=== PATIENT | male | born 1985 | race Caucasian/White ===

== ENCOUNTER 2024-10-19 11:17 | Emergency (ER) | payer OTHER, SELFPAY ==
--- NOTE | ~2024-10-19 | XR_ITS ---
EXAMINATION: XR CHEST CLINICAL INFORMATION: Chest pain COMPARISON: None available. TECHNIQUE: 2 views of the chest were obtained. FINDINGS: The cardiac, hilar, and mediastinal contours are normal. The lungs are clear bilaterally. There is no pneumothorax or pleural effusion. There is no focal osseous or soft tissue abnormality. XR/XR chest 2V IMPRESSION: Normal chest. Electronically signed by: Jose Jung MD 10/19/2024 01:27 PM [facility] [place]
--- NOTE | ~2024-10-19 | CT_ITS ---
EXAMINATION: CT ABDOMEN PELVIS WITH IV CONTRAST HISTORY: Epigastric abd pain COMPARISON: There are no prior studies for comparison. TECHNIQUE: CT scan of the abdomen and pelvis was performed following administration of 85 mL Omnipaque 350 using standard departmental protocol. Coronal and sagittal reformatted images were generated and reviewed. Oral contrast material was not administered at the request of the referring physician. This CT exam was performed with one or more of the following dose reduction techniques: automated exposure control, adjustment of the mA and/or kV according to patient size, use of iterative reconstruction technique. DLP: 494 mGy-cm FINDINGS: LOWER CHEST: The visualized lung bases are clear. There is no pleural effusion. CARDIOVASCULATURE: The heart is normal in size. There is no pericardial effusion. LIVER: The liver is normal in size and contour, but demonstrates decreased attenuation, consistent with steatosis. No liver mass is identified. The hepatic and portal veins are patent. GALLBLADDER / BILE DUCTS: The gallbladder is unremarkable. There is no intra or extrahepatic biliary ductal dilatation. SPLEEN: The spleen is normal in size. No focal splenic lesion is identified. PANCREAS: The pancreas is unremarkable in appearance. ADRENAL GLANDS: Within normal limits. KIDNEYS/RETROPERITONEUM: No renal calculi are identified. There is no hydronephrosis. No renal masses are identified. LYMPH NODES: No abdominal or pelvic lymphadenopathy. VASCULATURE: The abdominal aorta is normal in caliber. MESENTERY/PERITONEUM: No free fluid. No masses. There is no free intraperitoneal gas. STOMACH: The stomach is well-distended with fluid and is unremarkable in appearance. SMALL BOWEL: The small bowel is normal in caliber. COLON: The colon is unremarkable. APPENDIX: Normal. URINARY BLADDER/PELVIC ORGANS: The urinary bladder is unremarkable. The prostate is normal in size. BONES / SOFT TISSUES: No suspicious bony or soft tissue abnormalities. CT/CT abdomen pelvis w IV con IMPRESSION: Hepatic steatosis. Otherwise unremarkable contrast-enhanced CT of the abdomen and pelvis. Electronically signed by: Robert Adkins MD 10/19/2024 01:10 PM [facility] [place]
--- NOTE | 2024-10-19 11:23 | ECG_ITS ---
Test Reason : CP Blood Pressure : */* mmHG Vent. Rate : 116 BPM Atrial Rate : 116 BPM P-R Int : 170 ms QRS Dur : 62 ms QT Int : 298 ms P-R-T Axes : 56 87 44 degrees QTcB Int : 414 ms Sinus tachycardia Inferior infarct , possibly acute Cannot rule out Anterior infarct , age undetermined Abnormal ECG No previous ECGs available Referred By: Edgardo Randall Electronically Signed By: ANDREI CHAVEZ MD
[2024-10-19 11:32] VITALS: BP 148/88; PULSE 118; RESP 20; TEMP 37.6; O2SAT 97; BMI 26.4
--- NOTE | 2024-10-19 11:33 | ED_ITS ---
HPI - General Adult General Chief complaint: Abdominal Pain Stated complaint: abd chest pain vomiting Time Seen by Provider: 10/19/24 11:39 History of Present Illness ED Provider: Dr. Law HPI narrative: 39 y/o M patient; PMH alcohol induced pancreatitis, T2DM noncompliant with insulin; presents from home reporting epigastric abdominal pain radiating into his back associated with nausea/vomiting/diarrhea. He otherwise denies: fever or chills, SOB, cough/congestion, syncope. He states his last alcohol use was approx 2 weeks ago, he was supposed to drink for the [employer]oc[employer] yesterday but felt too ill to do so. Related Data Previous Rx's ?Medication ?Instructions ?Recorded pantoprazole 40 mg tablet,delayed 40 mg PO DAILY 30 days #30 tabs 10/19/24 release (Protonix) Allergies Allergy/AdvReac Type Severity Reaction Status Date / Time No Known Allergies Allergy Verified 10/19/24 11:36 Review of Systems 2 Review of Systems: Yes all other systems are reviewed and are negative [facility] Past Medical History Attestation statement: The following information was validated with the patient. Source: unable to obtain Social History Social History Advance Directives: No Advance Directives Information Provided: Yes Do you have a plan to hurt others: No Plan Physical Exam ED Vital Signs: Vital Signs - 24 hr 10/19/24 11:32 10/19/24 12:12 Temperature 99.7 F Pulse Rate 118 H 110 H Respiratory Rate 20 20 Blood Pressure 148/88 H 132/78 Pulse Oximetry 97 97 Oxygen Delivery Method Room Air Room Air BMI result Body Mass Index 26.4 Patient is tachycardic, afebrile, and hemodynamically stable. Const General: cooperative HENMT Head: Yes normal to inspection and Yes atraumatic Eyes General: appearance normal, both eyes and all related structures Pupils: Equal, round and reactive pupils present EOM: EOMs intact bilaterally Neck Neck: Yes normal visual inspection, Yes full ROM, Yes supple and No tender Chest Chest palpation & inspection: normal inspection of the chest and normal palpation of entire chest wall Resp Effort & Inspection: normal respiratory effort, able to speak in complete sentences, no cough and no respiratory distress Auscultation: clear to auscultation bilaterally Cardio Rate: tachycardic Rhythm: regular rhythm Peripheral pulses: Peripheral pulses 2+ throughout GI Other: Epigastric abdominal tenderness with + guarding without RUQ abdominal tenderness Inspection: No Abdominal wall edema and No distended Palpation (GI): Soft to palpation, not firm, Guarding due to palpation present (GI) and not rigid Back/Spine/Pelvis Back: No back tenderness Neuro Cranial nerves: Yes Equal, round and reactive pupils present Course Course Course Narrative: RME, this is a rapid medical exam performed by Jaspreet Randall please refer to primary provider for complete H&P- 39-year-old male presents for evaluation of epigastric abdominal pain that radiates through to his back. He reports a history of pancreatitis and states this feels similar. He has not had a drink in 2 weeks. He reports having had some chest tightness yesterday as well as a headache. He denies any personal cardiac history. He does have a history of diabetes. Patient had an EKG that showed ST elevation in leads 2, lead 3 and V2. Labs ordered. Patient brought back dark the to room 6, I did order aspirin Reevaluation(s) Reevaluation #1: Patient seen immediately due to concern for EKG abnormalities including elevated ST segments in leads II and II without reciprocal changes. Patient placed into bed. Ordered for laboratory studies. Providing 0.5mg Ativan IV, Toradol 15mg IV, Zofran 4mg IV, and 1L IVF. Reevaluation #2: Labs reviewed. Glucose 483. Magnesium 1.6. No leukocytosis. Corrected sodium 138. Bicarb 19. Lipase 14. Anion gap 19. VBG with compensated metabolic acidosis and respiratory alkalosis. LA 2.6. Added CT Abdomen/Pelvis. Provided total 2L IVF and Insulin regular 8 units. CXR unremarkable. Unclear etiology of patient's pain. Troponin is 4, unlikely ACS. CT Abdomen/Pelvis is unremarkable for acute pathology. Repeat sugar is 318. Provided Protonix 40mg IV and GI cocktail for possible gastritis versus PUD. No evidence of DKA or HHS. Repeat troponin 4.8. Repeat LA 2.1. Patient's BS improved to the 300s. Patient's HR is 100 - 105BPM. He reports significant improvement in his epigastric pain. He is tolerating PO. He has not had vomiting in the emergency department. I recommended to patient his symptoms could be due to gastritis/esophagitis or PUD that would not be seen on CT scan. I will send a prescription for Protonix, recommended avoiding aciditic/spicy foods and alcohol until improvement in symptoms. I provided GI for referral for endoscopy out-patient. I recommended he follow up with his PCP for better control of his blood sugar. Patient given strict precautions to return to the hospital for any worsening of his symptoms. Plan: Discharge to home with GI follow up Return precautions given Medications Administered Discontinued Medications Generic Name Dose Route Start Last Admin Trade Name Escobar PRN Reason Stop Dose Admin Al Hydroxide/Mg Hydroxide 30 ml 10/19/24 14:04 10/19/24 14:41 Magnesium Hydrox/Alum Hydrox 30 Ml Oral.Susp PO 10/19/24 14:05 30 ml ONCE ONE Administration Aspirin 324 mg 10/19/24 11:36 10/19/24 12:01 Aspirin 81 Mg Tab.Chew PO 10/19/24 11:37 324 mg ONCE ONE Administration Belladonna Alkaloids/Phenobarbital 10 ml 10/19/24 14:04 10/19/24 14:41 Phenobarb/Hyoscy/Atropine/Scop 10 Ml Elixir PO 10/19/24 14:05 10 ml ONCE ONE Administration Sodium Chloride 1,000 mls @ 999 mls/hr 10/19/24 11:45 10/19/24 13:04 Ns IV 10/19/24 12:45 Infused .Q1H1M GERMÁN Infusion Sodium Chloride 1,000 mls @ 999 mls/hr 10/19/24 12:30 10/19/24 15:01 Ns IV 10/19/24 13:30 Infused .Q1H1M GERMÁN Infusion Acetaminophen 1,000 mg in 100 mls @ 400 mls/hr 10/19/24 14:11 10/19/24 15:01 Ofirmev IV 10/19/24 14:25 Infused ONCE ONE Infusion Insulin Human Regular 8 unit 10/19/24 12:28 10/19/24 13:02 Insulin Regular, Human 100 Unit/Ml 10 Ml Vial IVPUSH 10/19/24 12:29 8 unit ONCE ONE Administration Iohexol 100 ml 10/19/24 12:52 10/19/24 12:53 Iohexol 350 Mg/Ml 100 Ml Infus..Btl IV 10/19/24 12:53 85 ml ONCE ONE Administration Ketorolac Tromethamine 15 mg 10/19/24 11:40 10/19/24 12:04 Ketorolac Tromethamine 15 Mg/Ml Vial IVPUSH 10/19/24 11:41 15 mg ONCE ONE Administration Lidocaine HCl 15 ml 10/19/24 14:04 10/19/24 14:41 Lidocaine Hcl Viscous 2 % 15 Ml Solution MUCOUS MEM 10/19/24 14:05 15 ml ONCE ONE Administration Lorazepam 0.5 mg 10/19/24 11:40 10/19/24 12:04 Lorazepam 2 Mg/Ml Vial IVPUSH 10/19/24 11:41 0.5 mg ONCE ONE Administration Ondansetron HCl 4 mg 10/19/24 12:28 10/19/24 13:02 Ondansetron Hcl 4 Mg/2 Ml Vial IVPUSH 10/19/24 12:29 4 mg ONCE ONE Administration Pantoprazole Sodium 40 mg 10/19/24 14:04 10/19/24 14:45 Pantoprazole Sodium 40 Mg/10 Ml Vial IVPUSH 10/19/24 14:05 40 mg ONCE ONE Administration Medical Decision Making Lab Data 10/19/24 11:53 10/19/24 11:53 Labs: Lab Results 10/19/24 10/19/24 10/19/24 Range/Units 11:53 12:10 12:37 WBC 9.1 (4.8-10.8) X10*3/uL RBC 5.63 (4.60-5.80) X10*6/uL Hgb 15.8 (14.0-18.0) g/dl Hct 46.3 (42.0-52.0) % MCV 82.2 (80.0-98.0) fL MCH 28.1 (27.0-33.0) pg MCHC 34.1 (31.0-36.0) g/dl RDW 12.7 (11.0-16.0) % Plt Count 176 (160-400) X10*3/uL MPV 10.6 (9.4-12.4) fL Immature Gran % (Auto) 0.3 (0.0-0.4) % Neut % (Auto) 87.6 H (45-73) % Lymph % (Auto) 4.2 L (20-40) % [place] % (Auto) 7.3 (2-11) % Eos % (Auto) 0.2 (0-4) % Baso % (Auto) 0.4 (0-2) % Lymph # (Auto) 0.4 L (1.2-4.9) X10*3/uL [place] # (Auto) 0.7 (0.1-1.2) X10*3/uL Eos # (Auto) 0.0 (0.0-0.4) X10*3/uL Baso # (Auto) 0.0 (0.0-0.2) X10*3/uL Abs Immat Gran (auto) 0.03 (0.00-0.03) X10*3/uL Absolute Neuts (auto) 8.0 (2.0-8.3) x10*3/uL Absolute Nucleated RBC 0.000 (0.0-0.012) X10*3/uL Nucleated RBC % (auto) 0.0 (0.0-0.2) /100WBC PT 10.8 L (10.9-12.4) SEC INR 0.9 (0.9-1.1) VBG pH (7.32-7.43) VBG pCO2 mmHg VBG pO2 mmHg VBG HCO3 (22-26) mmol/L VBG O2 Saturation % VBG Base Excess mmol/L Sodium 132 L (135-145) mmol/L Potassium 4.5 (3.3-5.1) mmol/L Chloride 99 (96-108) mmol/L Carbon Dioxide 19 L (22-29) mmol/L Anion Gap 19 (12-20) BUN 15 (9-16) mg/dL Creatinine 0.97 (0.5-1.4) mg/dL Estim Creat Clear Calc 105.5 Estimated GFR > 60 Random Glucose 483 H* (60-115) mg/dL Lactic Acid 2.6 H* (0.5-2.0) mmol/L Calcium 8.5 (8.4-10.2) mg/dL Magnesium 1.6 (1.6-2.6) mg/dL Total Bilirubin 1.7 H (0.0-1.0) mg/dL AST 26 (5-37) U/L ALT 23 (0-40) U/L Alkaline Phosphatase 114 (39-117) U/L Troponin I High Sens 4.0 (<3.5-35.0) ng/L Total Protein 8.0 (6.5-8.0) g/dL Albumin 4.1 (3.5-5.0) g/dL Lipase 14 (8-78) U/L Urine Opiates Screen Not Detected (Not Detect) Ur Buprenorphine Scrn Not Detected (Not Detect) ng/mL Ur Oxycodone Screen Not Detected (Not Detect) ng/mL Urine Methadone Screen Not Detected (Not Detect) ng/mL Urine Fentanyl Screen Not Detected (Not Detect) Ur Barbiturates Screen Not Detected (Not Detect) Ur Phencyclidine Scrn Not Detected (Not Detect) Ur Amphetamines Screen Not Detected (Not Detect) U Benzodiazepines Scrn Not Detected (Not Detect) Urine Cocaine Screen Not Detected (Not Detect) U Marijuana (THC) Screen Not Detected (Not Detect) Ethyl Alcohol < 10 mg/dL Influenza Type A (PCR) NEGATIVE (Negative) Influenza Type B (PCR) NEGATIVE (Negative) RSV RNA Qual (PCR) NEGATIVE (Negative) SARS-CoV-2 RNA (RT-PCR) NEGATIVE (Negative) 10/19/24 10/19/24 Range/Units 12:39 15:26 WBC (4.8-10.8) X10*3/uL RBC (4.60-5.80) X10*6/uL Hgb (14.0-18.0) g/dl Hct (42.0-52.0) % MCV (80.0-98.0) fL MCH (27.0-33.0) pg MCHC (31.0-36.0) g/dl RDW (11.0-16.0) % Plt Count (160-400) X10*3/uL MPV (9.4-12.4) fL Immature Gran % (Auto) (0.0-0.4) % Neut % (Auto) (45-73) % Lymph % (Auto) (20-40) % [place] % (Auto) (2-11) % Eos % (Auto) (0-4) % Baso % (Auto) (0-2) % Lymph # (Auto) (1.2-4.9) X10*3/uL [place] # (Auto) (0.1-1.2) X10*3/uL Eos # (Auto) (0.0-0.4) X10*3/uL Baso # (Auto) (0.0-0.2) X10*3/uL Abs Immat Gran (auto) (0.00-0.03) X10*3/uL Absolute Neuts (auto) (2.0-8.3) x10*3/uL Absolute Nucleated RBC (0.0-0.012) X10*3/uL Nucleated RBC % (auto) (0.0-0.2) /100WBC PT (10.9-12.4) SEC INR (0.9-1.1) VBG pH 7.40 (7.32-7.43) VBG pCO2 29 mmHg VBG pO2 49 mmHg VBG HCO3 18 L (22-26) mmol/L VBG O2 Saturation 84.0 % VBG Base Excess -4.6 mmol/L Sodium (135-145) mmol/L Potassium (3.3-5.1) mmol/L Chloride (96-108) mmol/L Carbon Dioxide (22-29) mmol/L Anion Gap (12-20) BUN (9-16) mg/dL Creatinine (0.5-1.4) mg/dL Estim Creat Clear Calc Estimated GFR Random Glucose (60-115) mg/dL Lactic Acid 2.1 H* (0.5-2.0) mmol/L Calcium (8.4-10.2) mg/dL Magnesium (1.6-2.6) mg/dL Total Bilirubin (0.0-1.0) mg/dL AST (5-37) U/L ALT (0-40) U/L Alkaline Phosphatase (39-117) U/L Troponin I High Sens 4.8 (<3.5-35.0) ng/L Total Protein (6.5-8.0) g/dL Albumin (3.5-5.0) g/dL Lipase (8-78) U/L Urine Opiates Screen (Not Detect) Ur Buprenorphine Scrn (Not Detect) ng/mL Ur Oxycodone Screen (Not Detect) ng/mL Urine Methadone Screen (Not Detect) ng/mL Urine Fentanyl Screen (Not Detect) Ur Barbiturates Screen (Not Detect) Ur Phencyclidine Scrn (Not Detect) Ur Amphetamines Screen (Not Detect) U Benzodiazepines Scrn (Not Detect) Urine Cocaine Screen (Not Detect) U Marijuana (THC) Screen (Not Detect) Ethyl Alcohol mg/dL Influenza Type A (PCR) (Negative) Influenza Type B (PCR) (Negative) RSV RNA Qual (PCR) (Negative) SARS-CoV-2 RNA (RT-PCR) (Negative) Radiology Impression Discussion of test interpretation with radiology: I have reviewed the radiologist's reading. Radiologist Impression: EXAMINATION: CT ABDOMEN PELVIS WITH IV CONTRAST HISTORY: Epigastric abd pain COMPARISON: There are no prior studies for comparison. TECHNIQUE: CT scan of the abdomen and pelvis was performed following administration of 85 mL Omnipaque 350 using standard departmental protocol. Coronal and sagittal reformatted images were generated and reviewed. Oral contrast material was not administered at the request of the referring physician. This CT exam was performed with one or more of the following dose reduction techniques: automated exposure control, adjustment of the mA and/or kV according to patient size, use of iterative reconstruction technique. DLP: 494 mGy-cm FINDINGS: LOWER CHEST: The visualized lung bases are clear. There is no pleural effusion. CARDIOVASCULATURE: The heart is normal in size. There is no pericardial effusion. LIVER: The liver is normal in size and contour, but demonstrates decreased attenuation, consistent with steatosis. No liver mass is identified. The hepatic and portal veins are patent. GALLBLADDER / BILE DUCTS: The gallbladder is unremarkable. There is no intra or extrahepatic biliary ductal dilatation. SPLEEN: The spleen is normal in size. No focal splenic lesion is identified. PANCREAS: The pancreas is unremarkable in appearance. ADRENAL GLANDS: Within normal limits. KIDNEYS/RETROPERITONEUM: No renal calculi are identified. There is no hydronephrosis. No renal masses are identified. LYMPH NODES: No abdominal or pelvic lymphadenopathy. VASCULATURE: The abdominal aorta is normal in caliber. MESENTERY/PERITONEUM: No free fluid. No masses. There is no free intraperitoneal gas. STOMACH: The stomach is well-distended with fluid and is unremarkable in appearance. SMALL BOWEL: The small bowel is normal in caliber. COLON: The colon is unremarkable. APPENDIX: Normal. URINARY BLADDER/PELVIC ORGANS: The urinary bladder is unremarkable. The prostate is normal in size. BONES / SOFT TISSUES: No suspicious bony or soft tissue abnormalities. CT/CT abdomen pelvis w IV con IMPRESSION: Hepatic steatosis. Otherwise unremarkable contrast-enhanced CT of the abdomen and pelvis. EXAMINATION: XR CHEST CLINICAL INFORMATION: Chest pain COMPARISON: None available. TECHNIQUE: 2 views of the chest were obtained. FINDINGS: The cardiac, hilar, and mediastinal contours are normal. The lungs are clear bilaterally. There is no pneumothorax or pleural effusion. There is no focal osseous or soft tissue abnormality. XR/XR chest 2V IMPRESSION: Normal chest. Electronically signed by: Jose Jung MD 10/19/2024 01:27 PM [facility] Report Number: [id number]: Total DLP = 494.00 mGy-cm EXAMINATION: CT ABDOMEN PELVIS WITH IV CONTRAST HISTORY: Epigastric abd pain COMPARISON: There are no prior studies for comparison. TECHNIQUE: CT scan of the abdomen and pelvis was performed following administration of 85 mL Omnipaque 350 using standard departmental protocol. Coronal and sagittal reformatted images were generated and reviewed. Oral contrast material was not administered at the request of the referring physician. This CT exam was performed with one or more of the following dose reduction techniques: automated exposure control, adjustment of the mA and/or kV according to patient size, use of iterative reconstruction technique. DLP: 494 mGy-cm FINDINGS: LOWER CHEST: The visualized lung bases are clear. There is no pleural effusion. CARDIOVASCULATURE: The heart is normal in size. There is no pericardial effusion. LIVER: The liver is normal in size and contour, but demonstrates decreased attenuation, consistent with steatosis. No liver mass is identified. The hepatic and portal veins are patent. GALLBLADDER / BILE DUCTS: The gallbladder is unremarkable. There is no intra or extrahepatic biliary ductal dilatation. SPLEEN: The spleen is normal in size. No focal splenic lesion is identified. PANCREAS: The pancreas is unremarkable in appearance. ADRENAL GLANDS: Within normal limits. KIDNEYS/RETROPERITONEUM: No renal calculi are identified. There is no hydronephrosis. No renal masses are identified. LYMPH NODES: No abdominal or pelvic lymphadenopathy. VASCULATURE: The abdominal aorta is normal in caliber. MESENTERY/PERITONEUM: No free fluid. No masses. There is no free intraperitoneal gas. STOMACH: The stomach is well-distended with fluid and is unremarkable in appearance. SMALL BOWEL: The small bowel is normal in caliber. COLON: The colon is unremarkable. APPENDIX: Normal. URINARY BLADDER/PELVIC ORGANS: The urinary bladder is unremarkable. The prostate is normal in size. BONES / SOFT TISSUES: No suspicious bony or soft tissue abnormalities. CT/CT abdomen pelvis w IV con IMPRESSION: Hepatic steatosis. Otherwise unremarkable contrast-enhanced CT of the abdomen and pelvis. Discharge Plan Discharge Clinical Impression: Abdominal pain Patient Disposition: Home, Self-Care Instructions: Peptic Ulcer (ED), Gastritis (ED) Additional Instructions: As we discussed, your symptoms could be due to gastritis/esophagitis or peptic ulcer disease that would not be seen on CT scan. I will send a prescription for Protonix (proton pump inhibitor - take once a day every day), recommended avoiding aciditic/spicy foods and alcohol until improvement in symptoms. I provided GI for referral for endoscopy out-patient. Call the number to make an appointment as soon as possible. I recommended following up with your PCP for better control of your blood sugar as it was quite high today. You were given strict precautions to return to the hospital for any worsening of your symptoms. Prescriptions: New pantoprazole [Protonix] 40 mg tablet,delayed release (DR/EC) 40 mg PO DAILY 30 Days Qty: 30 0RF Referrals: Robert Lay MD [Physician] - 2 days Print Language: Bulgarian
[2024-10-19 11:59] LABS: MANUAL DIFF FLAG NO
[2024-10-19] MEDS: Aspirin 81 MG TAB.CHEW 324 MG PO (12:01)
[2024-10-19 12:03] LABS: Basophils Percent Auto 0.4 % (0-2); Eosinophils Percent Auto 0.2 % (0-4); Hematocrit 46.3 % (42.0-52.0); Hemoglobin 15.8 g/dl (14.0-18.0); Imm Gran Abs Auto 0.03 X10*3/uL (0.00-0.03); Imm Gran Pct Auto 0.3 % (0.0-0.4); Lymphocytes Absolute Auto 0.4 X10*3/uL (1.2-4.9); Lymphocytes Percent Auto 4.2 % (20-40); Mean Corpuscular HGB Conc 34.1 g/dl (31.0-36.0); Mean Corpuscular Hemoglobin 28.1 pg (27.0-33.0); Mean Corpuscular Volume 82.2 fL (80.0-98.0); Mean Platelet Volume 10.6 fL (9.4-12.4); Monocytes Absolute Auto 0.7 X10*3/uL (0.1-1.2); Monocytes Percent Auto 7.3 % (2-11); Neutrophils Percent Auto 87.6 % (45-73); Platelet Count 176 X10*3/uL (160-400); Red Blood Count 5.63 X10*6/uL (4.60-5.80); Red Cell Distribution Width 12.7 % (11.0-16.0); White Blood Count 9.1 X10*3/uL (4.8-10.8)
[2024-10-19] MEDS: 0.9 % Sodium Chloride 1,000 ML 999 ML IV ×2 (12:03→13:02)
[2024-10-19] MEDS: LORazepam 2 MG/ML VIAL 0.5 MG IVPUSH (12:04)
[2024-10-19] MEDS: Ketorolac Tromethamine 15 MG/ML VIAL IVPUSH (12:04)
[2024-10-19 12:08] LABS: INTERNATIONAL NORM RATIO 0.9 (0.9-1.1); Prothrombin Time 10.8 SEC (10.9-12.4)
[2024-10-19 12:12] VITALS: BP 132/78; PULSE 110; RESP 20; O2SAT 97
[2024-10-19 12:20] LABS: Ethanol < 10 mg/dL; Magnesium 1.6 mg/dL (1.6-2.6)
[2024-10-19 12:24] LABS: Alanine Aminotransferase 23 U/L (0-40); Albumin Level 4.1 g/dL (3.5-5.0); Alkaline Phosphatase 114 U/L (39-117); Anion Gap 19 (12-20); Aspartate Amino Transferase 26 U/L (5-37); Bilirubin Total 1.7 mg/dL (0.0-1.0); Blood Urea Nitrogen 15 mg/dL (9-16); Calcium 8.5 mg/dL (8.4-10.2); Carbon Dioxide 19 mmol/L (22-29); Chloride 99 mmol/L (96-108); Creatinine Clr Calc Pharmacy 105.5; Estimated Glomerular Filt Rate > 60; Glucose Random 483 mg/dL (60-115); Lipase 14 U/L (8-78); Potassium 4.5 mmol/L (3.3-5.1); Sodium 132 mmol/L (135-145)
[2024-10-19 12:45] LABS: VBG Base Excess -4.6 mmol/L; VBG HCO3 18 mmol/L (22-26); VBG pCO2 29 mmHg; VBG pO2 49 mmHg
[2024-10-19 12:46] LABS: Venous Blood Gas Refer to POC result
[2024-10-19 12:53] LABS: Influenza A PCR NEGATIVE (Negative); Influenza B PCR NEGATIVE (Negative); Resp Syncy Virus RNA Qual PCR NEGATIVE (Negative); SARS COV2 PCR INHOUSE NEGATIVE (Negative)
[2024-10-19] MEDS: iohexoL 350 MG/ML 100 ML INFUS..BTL IV (12:53)
[2024-10-19 12:59] LABS: Amphetamine Screen Urine Not Detected (Not Detect); Barbiturates, Urine Not Detected (Not Detect); Benzodiazepines Screen Urine Not Detected (Not Detect); Buprenorphine Scr Not Detected (Not Detect); Cannabinoid Screen Urine Not Detected (Not Detect); Cocaine Screen Urine Not Detected (Not Detect); Fentanyl, urine Not Detected (Not Detect); Methadone Screen, Urine Not Detected (Not Detect); Opiate Screen Urine Not Detected (Not Detect); Oxycodone Screen Urine Not Detected (Not Detect); Phencyclidine Screen Urine Not Detected (Not Detect)
[2024-10-19 13:00] LABS: Lactic Acid 2.6 mmol/L (0.5-2.0)
[2024-10-19] MEDS: ondansetron HCL 4 MG/2 ML VIAL IVPUSH (13:02)
[2024-10-19] MEDS: Insulin Regular, Human 100 UNIT/ML 10 ML VIAL 8 UNIT IVPUSH (13:02)
--- OUTSIDE RECORDS SUMMARY | 2024-10-19 13:09 | XMS_ITS | Clinical Summary ---
Author Organization [facility] Address [address] [place] [address] Care Team Providers Care Retail Merchandising Coordinator Name Role Phone Unavailable Primary Care Provider Unavailabl e Social History Tobacco Use Types Packs/Day Years Used Date Smoking Tobacco: Never Assessed Sex and Gender Information Value Date Recorded Sex Assigned at Not on file Legal Sex Male 3:16 PM EDT Gender Identity Not on file Sexual Orientation Not on file Plan of Treatment Health Maintenance Due Date Last Done Comments DTaP,Tdap,and Td Vaccines (1 - Tdap) 1992 Hepatitis B Vaccines (1 of 3 - 19+ 3-dose series) 2004 COVID-19 Vaccine (2023-2 5 season) 2024 Influenza Vaccine (#1) 2024 HIB Vaccines Aged Out No longer eligi ble based on patient's age to complete this topic HPV Vaccines Aged Out No longer eligi ble based on patient's age to complete this topic Hepatitis A Vaccines Aged Out No long er eligible based on patient's age to complete this topic IPV Vaccines Aged Out No longer eligi ble based on patient's age to complete this topic MMR Vaccines Aged Out No longer eligi ble based on patient's age to complete this topic Meningococcal ACWY Vaccine Aged Out N o longer eligible based on patient's age to complete this topic Meningococcal B Vacine Aged Out No lo nger eligible based on patient's age to complete this topic Pneumococcal Vaccine: Pediat rics (0 to 5 Years) and At-Risk Patients (6 to 64 Years) Aged Out No longer eligible b ased on patient's age to complete this topic RSV Immunization Patients Un zen 20 months Aged Out No longer eligible b ased on patient's age to complete this topic Varicella Vaccines Aged Out No longer eligible based on patient's age to complete this topic
[2024-10-19 14:40] LABS: Reflex Lactate? Lactic Acid Added
[2024-10-19] MEDS: PHENobarb/Hyoscy/Atropine/Scop 10 ML ELIXIR PO (14:41)
[2024-10-19] MEDS: Acetaminophen 1,000 MG/100 ML PIGGYBACK 400 MG IV (14:41)
[2024-10-19] MEDS: Magnesium Hydrox/Alum Hydrox 30 ML ORAL.SUSP PO (14:41)
[2024-10-19] MEDS: Lidocaine HCl Viscous 2 % 15 ML SOLUTION MUCOUS MEM (14:41)
[2024-10-19] MEDS: Pantoprazole Sodium 40 MG/10 ML VIAL IVPUSH (14:45)
[2024-10-19 16:00] LABS: Troponin-I High Sensitivity 4.8 ng/L (<3.5-35.0)
[2024-10-19 16:08] LABS: Lactic Acid 2.1 mmol/L (0.5-2.0)
[2024-10-19 16:55] LABS: Glucose, Whole Blood 314 mg/dL (60-115)
[2024-10-19 16:55] LABS: Glucose, Whole Blood 318 mg/dL (60-115)
[2024-10-19] MEDS: Insulin Regular, Human 100 UNIT/ML 10 ML VIAL IVPUSH (17:02)
[2024-10-19 17:23] VITALS: PULSE 101
[2024-10-19 17:24] VITALS: BP 132/78; PULSE 101; RESP 20; TEMP 37.6; O2SAT 97
[2024-10-19 17:30] LABS: Reflex Lactate? Lactic Acid Added
== END 2024-10-19 17:24 | disposition home or self-care (01) ==
PROVIDERS: Physician Assistant; Emergency Provider Emergency Medicine
DX: R10.13 Epigastric pain (principal); R11.2 Nausea with vomiting, unspecified; R19.7 Diarrhea, unspecified; Z03.818 Encounter for observation for suspected exposure to other biological agents ruled out; Z79.899 Other long term (current) drug therapy
CPT/HCPCS: 0241U; 36415; 71046; 74177; 80053; 80307; 82803; 82947; 83605; 83690; 83735; 84484; 85025; 85610; 93005; 96361; 96374; 96375; 96376; 99284; J0131; J1885; J2060; J2405; J2470; Q9967

== ENCOUNTER → 2024-10-19 11:23 | Outpatient (BNV) | payer OTHER, SELFPAY | PROVIDERS: Emergency Provider Emergency Medicine; Visit Provider Internal Medicine Cardiovascular Disease | DX: R00.0 Tachycardia, unspecified (principal) | CPT/HCPCS: 93010 ==

== ENCOUNTER → 2024-10-19 12:26 | Outpatient (BNV) | payer OTHER, SELFPAY | PROVIDERS: Emergency Provider Emergency Medicine; Visit Provider Radiology Diagnostic Radiology | DX: K76.0 Fatty (change of) liver, not elsewhere classified (principal); R07.9 Chest pain, unspecified | CPT/HCPCS: 71046; 74177 ==

== ENCOUNTER 2024-11-19 10:04 | Emergency (ER) | payer OTHER, SELFPAY ==
--- NOTE | ~2024-11-19 | CT_ITS ---
EXAMINATION: CT ABDOMEN PELVIS WITH IV CONTRAST HISTORY: History of pancreatitis, severe abd pain. COMPARISON: Comparison is made with the prior examination dated 10/19/2024. TECHNIQUE: CT scan of the abdomen and pelvis was performed following administration of 85 mL Omnipaque 350 using standard departmental protocol. Coronal and sagittal reformatted images were generated and reviewed. Oral contrast material was not administered at the request of the referring physician. This CT exam was performed with one or more of the following dose reduction techniques: automated exposure control, adjustment of the mA and/or kV according to patient size, use of iterative reconstruction technique. DLP: 553 mGy-cm FINDINGS: LOWER CHEST: The visualized lung bases are clear. There is no pleural effusion. CARDIOVASCULATURE: The heart is normal in size. There is no pericardial effusion. LIVER: The liver is normal in size and contour. No liver mass is identified. The hepatic and portal veins are patent. GALLBLADDER / BILE DUCTS: The gallbladder is unremarkable. There is no intra or extrahepatic biliary ductal dilatation. SPLEEN: The spleen is normal in size. No focal splenic lesion is identified. PANCREAS: The pancreas is unremarkable in appearance. ADRENAL GLANDS: Within normal limits. KIDNEYS/RETROPERITONEUM: No renal calculi are identified. There is no hydronephrosis. No renal masses are identified. LYMPH NODES: No abdominal or pelvic lymphadenopathy. VASCULATURE: The abdominal aorta is normal in caliber. MESENTERY/PERITONEUM: No free fluid. No masses. There is no free intraperitoneal gas. STOMACH: The stomach is collapsed, limiting evaluation. SMALL BOWEL: The small bowel is normal in caliber. COLON: There is a large amount of stool throughout the colon. APPENDIX: Normal. URINARY BLADDER/PELVIC ORGANS: The urinary bladder is unremarkable. The prostate is normal in size. BONES / SOFT TISSUES: No suspicious bony or soft tissue abnormalities. CT/CT abdomen pelvis w IV con IMPRESSION: Large amount of stool throughout the colon. No CT evidence of acute pancreatitis. Electronically signed by: Robert Adkins MD 11/19/2024 01:41 PM EDT
[2024-11-19 10:16] VITALS: BP 135/85; PULSE 91; RESP 16; TEMP 37.1; O2SAT 98; BMI 20.6
[2024-11-19 10:29] LABS: Glucose, Whole Blood 534 mg/dL (60-115)
[2024-11-19 10:43] LABS: MANUAL DIFF FLAG NO
--- NOTE | 2024-11-19 10:47 | PC.NURSE ---
patient presents to ED, patient family member states that they feels as if angelito quach put sugar syrup in his coffee this morning. when patient questioned patient avoids contact with staff. patient states that he is not taking anythong for diabetes control because he feels fine patient also states he does not take his sugars to monitor them despite knowing he is diabetic. #20 placed in patient left wrist.
[2024-11-19 10:48] LABS: Basophils Absolute Auto 0.1 X10*3/uL (0.0-0.2); Basophils Percent Auto 0.8 % (0-2); Eosinophils Percent Auto 0.5 % (0-4); Hematocrit 46.5 % (42.0-52.0); Hemoglobin 15.8 g/dl (14.0-18.0); Imm Gran Abs Auto 0.03 X10*3/uL (0.00-0.03); Imm Gran Pct Auto 0.3 % (0.0-0.4); Lymphocytes Absolute Auto 2.7 X10*3/uL (1.2-4.9); Lymphocytes Percent Auto 31.2 % (20-40); Mean Corpuscular Hemoglobin 27.4 pg (27.0-33.0); Mean Corpuscular Volume 80.7 fL (80.0-98.0); Mean Platelet Volume 10.7 fL (9.4-12.4); Monocytes Absolute Auto 0.6 X10*3/uL (0.1-1.2); Monocytes Percent Auto 6.9 % (2-11); Neutrophils Absolute Auto 5.2 x10*3/uL (2.0-8.3); Neutrophils Percent Auto 60.3 % (45-73); Platelet Count 195 X10*3/uL (160-400); Red Blood Count 5.76 X10*6/uL (4.60-5.80); Red Cell Distribution Width 12.5 % (11.0-16.0); White Blood Count 8.6 X10*3/uL (4.8-10.8)
[2024-11-19 10:59] LABS: Anion Gap 13 (12-20)
[2024-11-19 11:13] LABS: Beta-Hydroxybutyrate 0.25 mmol/L (0.02-0.27)
[2024-11-19 11:28] LABS: Alanine Aminotransferase 34 U/L (0-40); Albumin Level 4.3 g/dL (3.5-5.0); Alkaline Phosphatase 208 U/L (39-117); Aspartate Amino Transferase 20 U/L (5-37); Bilirubin Total 0.8 mg/dL (0.0-1.0); Blood Urea Nitrogen 16 mg/dL (9-16); Calcium 9.4 mg/dL (8.4-10.2); Carbon Dioxide 23 mmol/L (22-29); Chloride 97 mmol/L (96-108); Creatinine Clr Calc Pharmacy 97.1; Estimated Glomerular Filt Rate > 60; Glucose Random 542 mg/dL (60-115); Lipase 95 U/L (8-78); Potassium 4.6 mmol/L (3.3-5.1); Sodium 128 mmol/L (135-145)
--- NOTE | 2024-11-19 11:38 | ED.ABDPAIN ---
HPI - Abdominal Pain General Chief Complaint: Abdominal Pain Stated Complaint: Abd pain Time Seen by Provider: 11/19/24 11:30 Source: patient and family Mode of arrival: ambulatory Limitations: no limitations History of Present Illness ED Provider: DR. Yip HPI narrative: a 39-year-old male history of alcoholic pancreatitis ( patient currently do not drink alcohol), T2 DM controlled with insulin patient noncompliant with his medication patient just moved from [place] to [place] has no PCP yet, patient did not take insulin for few months, came in for evaluation feeling blood sugar is high after had breakfast at [employer] patient feel blurry vision, dizzy, and epigastric pain stated that he had a history pancreatitis that get triggered by hyperglycemia. No fever, no chills, no vomiting, no nausea , no recent use of alcohol. Related Data Previous Rx's ?Medication ?Instructions ?Recorded pantoprazole 40 mg tablet,delayed 40 mg PO DAILY 30 days #30 tabs 10/19/24 release (Protonix) glipizide 5 mg tablet 5 mg PO BID #20 tabs 11/19/24 metformin 500 mg tablet 500 mg PO BID #20 tabs 11/19/24 omeprazole 40 mg capsule,delayed 40 mg PO DAILY #14 caps 11/19/24 release Allergies Allergy/AdvReac Type Severity Reaction Status Date / Time No Known Allergies Allergy Verified 11/19/24 10:20 Review of Systems Review of Systems All other systems are reviewed and are negative Constitutional: Reports as per HPI and Reports no additional constitutional complaints Eyes: Reports as per HPI and Reports no additional eye complaints Reports system reviewed and no additional complaints, except as documented Cardiovascular: Reports as per HPI and Reports no additional cardiovascular complaints Respiratory: Reports as per HPI and Reports no additional respiratory complaints Gastrointestinal: Reports as per HPI and Reports no additional gastrointestinal complaints Genitourinary: Reports no additional female genitourinary complaints Musculoskeletal: Reports no additional musculoskeletal complaints Skin/Breast: Reports system reviewed and no additional complaints, except as docu Psychiatric: Reports no additional psychiatric complaints Endocrine: Reports no additional endocrine complaints Hematologic/Lymphatic: Reports no additional hematologic/lymphatic complaints Allergic/Immunologic: Reports no additional allergic/immunologic complaints Reports system reviewed and no additional complaints, except as documented and Reports Abnormal speech present [facility] Social History Social History Advance Directives: No Advance Directives Information Provided: Yes Physical Exam ED Vital Signs: Vital Signs - 24 hr 11/19/24 10:16 11/19/24 12:12 11/19/24 14:53 Temperature 98.8 F 98.3 F Pulse Rate 91 91 79 Respiratory Rate 16 18 16 Blood Pressure 135/85 141/88 H Pulse Oximetry 98 98 98 Oxygen Delivery Method Room Air Room Air Room Air BMI result Body Mass Index 20.6 Vital signs have been reviewed and appear to be correct. Blood pressure elevated. Heart rate normal. Respiratory rate normal. Temperature normal. Oxygen saturation normal. Appearance: Alert. Oriented X3. No acute distress. Head: Normal external exam. Normocephalic. Atraumatic. No Dean signs noted. No raccoon eyes noted Eyes: PERRLA. EOMI. Conjunctiva and sclera normal. Eyelids normal. ENT: TM's Normal. Pharynx normal. Uvula midline. Moist mucous membranes. No trismus noted. No drooling noted. No muffled voice noted. Neck: Normal inspection. Neck supple. FROM. No adenopathy. Thyroid Normal. No meningeal signs. No neck mass noted. CVS: Normal heart rate and rhythm. Heart sound normal. No murmurs noted. Pulses normal throughout. Respiratory: No respiratory distress. Painless inspiration. Breath sounds normal. No wheezes/rales/rhonchi noted. Chest nontender. No accessory muscle usage noted or decreased air movement noted. Abdomen: Soft , mild epigastric tenderness, no rebound tenderness, no guarding. Bowel sounds normal in all 4 quadrants. No distention noted. No organomegaly noted. No visible injury noted. Back: No CVA tenderness. Full range of motion noted. Skin: Skin warm and dry. Normal skin color. Normal skin turgor. No rashes/lesions/lacerations noted. Extremities: No lower extremity edema. Extremities exhibit normal range of motion. Extremities nontender. Neuro: Oriented X 3. Cranial nerve exam: II-XII are grossly intact No motor deficit. No sensory deficit. Reflexes normal. Course Reevaluation(s) Reevaluation #1: 39-year-old male type 2 diabetes noncompliant with his medication came in with hyperglycemia. patient feels better improvement of BS, no DKA. Abdominal pain secondary to mild gastritis versus Mild pancreatitis. patient is a do not have medical insurance patient will be going to the [facility] tomorrow. Will start the patient on metformin , glipizide, Prilosec. Time: 15:05 Medical Decision Making Differential Diagnosis Differential Diagnoses: The differential diagnosis associated with the presentation includes ( DKA, hyperglycemia, electrolyte derangement, severe dehydration, pancreatitis, gastritis, colitis, gallbladder disease.) Admission/Observation Consideration of admission/observation: Escalation of care including admission/observation considered Lab Data MDM Lab Attestation statement: I reviewed the patient's lab results. 11/19/24 10:30 11/19/24 14:02 Labs: Lab Results 11/19/24 11/19/24 11/19/24 Range/Units 10:24 10:30 12:58 WBC 8.6 (4.8-10.8) X10*3/uL RBC 5.76 (4.60-5.80) X10*6/uL Hgb 15.8 (14.0-18.0) g/dl Hct 46.5 (42.0-52.0) % MCV 80.7 (80.0-98.0) fL MCH 27.4 (27.0-33.0) pg MCHC 34.0 (31.0-36.0) g/dl RDW 12.5 (11.0-16.0) % Plt Count 195 (160-400) X10*3/uL MPV 10.7 (9.4-12.4) fL Immature Gran % (Auto) 0.3 (0.0-0.4) % Neut % (Auto) 60.3 (45-73) % Lymph % (Auto) 31.2 (20-40) % Loving % (Auto) 6.9 (2-11) % Eos % (Auto) 0.5 (0-4) % Baso % (Auto) 0.8 (0-2) % Lymph # (Auto) 2.7 (1.2-4.9) X10*3/uL Loving # (Auto) 0.6 (0.1-1.2) X10*3/uL Eos # (Auto) 0.0 (0.0-0.4) X10*3/uL Baso # (Auto) 0.1 (0.0-0.2) X10*3/uL Abs Immat Gran (auto) 0.03 (0.00-0.03) X10*3/uL Absolute Neuts (auto) 5.2 (2.0-8.3) x10*3/uL Absolute Nucleated RBC 0.000 (0.0-0.012) X10*3/uL Nucleated RBC % (auto) 0.0 (0.0-0.2) /100WBC Sodium 128 L (135-145) mmol/L Potassium 4.6 (3.3-5.1) mmol/L Chloride 97 (96-108) mmol/L Carbon Dioxide 23 (22-29) mmol/L Anion Gap 13 (12-20) BUN 16 (9-16) mg/dL Creatinine 0.94 (0.5-1.4) mg/dL Estim Creat Clear Calc 97.1 Estimated GFR > 60 POC Glucose 534 H* 295 H (60-115) mg/dL Random Glucose 542 H* (60-115) mg/dL Calcium 9.4 D (8.4-10.2) mg/dL Total Bilirubin 0.8 (0.0-1.0) mg/dL AST 20 (5-37) U/L ALT 34 (0-40) U/L Alkaline Phosphatase 208 H (39-117) U/L Total Protein 8.0 (6.5-8.0) g/dL Albumin 4.3 (3.5-5.0) g/dL Lipase 95 H (8-78) U/L Beta-Hydroxybutyrate 0.25 (0.02-0.27) mmol/L 11/19/24 Range/Units 14:02 WBC (4.8-10.8) X10*3/uL RBC (4.60-5.80) X10*6/uL Hgb (14.0-18.0) g/dl Hct (42.0-52.0) % MCV (80.0-98.0) fL MCH (27.0-33.0) pg MCHC (31.0-36.0) g/dl RDW (11.0-16.0) % Plt Count (160-400) X10*3/uL MPV (9.4-12.4) fL Immature Gran % (Auto) (0.0-0.4) % Neut % (Auto) (45-73) % Lymph % (Auto) (20-40) % Loving % (Auto) (2-11) % Eos % (Auto) (0-4) % Baso % (Auto) (0-2) % Lymph # (Auto) (1.2-4.9) X10*3/uL Loving # (Auto) (0.1-1.2) X10*3/uL Eos # (Auto) (0.0-0.4) X10*3/uL Baso # (Auto) (0.0-0.2) X10*3/uL Abs Immat Gran (auto) (0.00-0.03) X10*3/uL Absolute Neuts (auto) (2.0-8.3) x10*3/uL Absolute Nucleated RBC (0.0-0.012) X10*3/uL Nucleated RBC % (auto) (0.0-0.2) /100WBC Sodium 134 L (135-145) mmol/L Potassium 3.5 D (3.3-5.1) mmol/L Chloride 100 (96-108) mmol/L Carbon Dioxide 26 (22-29) mmol/L Anion Gap 12 (12-20) BUN 12 (9-16) mg/dL Creatinine 0.77 (0.5-1.4) mg/dL Estim Creat Clear Calc 118.5 Estimated GFR > 60 POC Glucose (60-115) mg/dL Random Glucose 307 H (60-115) mg/dL Calcium 8.8 D (8.4-10.2) mg/dL Total Bilirubin (0.0-1.0) mg/dL AST (5-37) U/L ALT (0-40) U/L Alkaline Phosphatase (39-117) U/L Total Protein (6.5-8.0) g/dL Albumin (3.5-5.0) g/dL Lipase (8-78) U/L Beta-Hydroxybutyrate (0.02-0.27) mmol/L Independent Interpretation I performed an independent interpretation of an: CT Scan ( abdomen pelvis:Large amount of stool throughout the colon. No CT evidence of acute pancreatitis. ) Radiology Impression Discussion of test interpretation with radiology: I have reviewed the radiologist's reading. Chronic Conditions Patient?s care impacted by: Diabetes Medications Administered Discontinued Medications Generic Name Dose Route Start Last Admin Trade Name Escobar PRN Reason Stop Dose Admin Sodium Chloride 1,000 mls @ 999 mls/hr 11/19/24 11:36 11/19/24 13:49 Ns IV 11/19/24 12:36 Infused .Q1H1M ONE Infusion Sodium Chloride 1,000 mls @ 999 mls/hr 11/19/24 13:39 11/19/24 14:00 Ns IV 11/19/24 14:39 999 mls/hr .Q1H1M ONE Administration Insulin Human Regular 5 unit 11/19/24 11:36 11/19/24 12:01 Insulin Regular, Human 100 Unit/Ml 10 Ml Vial IVPUSH 11/19/24 11:37 5 unit ONCE ONE Administration Iohexol 100 ml 11/19/24 13:29 11/19/24 13:29 Iohexol 350 Mg/Ml 100 Ml Infus..Btl IV 11/19/24 13:30 85 ml ONCE ONE Administration Ketorolac Tromethamine 15 mg 11/19/24 11:36 11/19/24 12:02 Ketorolac Tromethamine 15 Mg/Ml Vial IVPUSH 11/19/24 11:37 15 mg ONCE ONE Administration Discharge Plan Discharge Clinical Impression: Hyperglycemia due to type 2 diabetes mellitus, Abdominal pain, Gastritis Patient Disposition: Home, Self-Care Instructions: Gastritis (ED) Additional Instructions: [facility]. Prescriptions: New metformin 500 mg tablet 500 mg PO BID Qty: 20 0RF glipizide 5 mg tablet 5 mg PO BID Qty: 20 0RF omeprazole 40 mg capsule,delayed release(DR/EC) 40 mg PO DAILY Qty: 14 0RF No Action pantoprazole [Protonix] 40 mg tablet,delayed release (DR/EC) 40 mg PO DAILY 30 Days Qty: 30 0RF Print Language: Faroese
[2024-11-19] MEDS: Insulin Regular, Human 100 UNIT/ML 10 ML VIAL IVPUSH (12:01)
[2024-11-19] MEDS: 0.9 % Sodium Chloride 1,000 ML 999 ML IV ×2 (12:01→14:00)
[2024-11-19] MEDS: Ketorolac Tromethamine 15 MG/ML VIAL IVPUSH (12:02)
--- NOTE | 2024-11-19 12:08 | PC.NURSE ---
went to medicated patient with ordered toradol, patient states that toradol doesnt work for him- patient was agreeable to toradol. medicated per MAR
[2024-11-19 12:12] VITALS: PULSE 91; RESP 18; O2SAT 98
[2024-11-19 13:02] LABS: Glucose, Whole Blood 295 mg/dL (60-115)
--- OUTSIDE RECORDS SUMMARY | 2024-11-19 13:04 | XMS_ITS | Clinical Summary ---
Author Organization [employer] [facility] Address [address] [place] [address] Care Team Providers Care Umbrella Tipper Hand Name Role Phone Unavailable Primary Care Provider [...] Comments DTaP,Tdap,and Td Vaccines (1 - Tdap) 2004 Hepatitis B Vaccines (1 of 3 - [...]
[2024-11-19] MEDS: iohexoL 350 MG/ML 100 ML INFUS..BTL IV (13:29)
[2024-11-19 14:37] LABS: Anion Gap 12 (12-20); Blood Urea Nitrogen 12 mg/dL (9-16); Calcium 8.8 mg/dL (8.4-10.2); Carbon Dioxide 26 mmol/L (22-29); Chloride 100 mmol/L (96-108); Creatinine Clr Calc Pharmacy 118.5; Estimated Glomerular Filt Rate > 60; Glucose Random 307 mg/dL (60-115); Potassium 3.5 mmol/L (3.3-5.1); Sodium 134 mmol/L (135-145)
[2024-11-19 14:53] VITALS: BP 141/88; PULSE 79; RESP 16; TEMP 36.8; O2SAT 98
[2024-11-19 15:24] VITALS: BP 141/88; PULSE 79; RESP 16; TEMP 36.8; O2SAT 98
== END 2024-11-19 15:24 | disposition home or self-care (01) ==
PROVIDERS: Emergency Provider Emergency Medicine
DX: K29.60 Other gastritis without bleeding (principal); E11.65 Type 2 diabetes mellitus with hyperglycemia; R10.2 Pelvic and perineal pain; Z91.148 Patient's other noncompliance with medication regimen for other reason; Z79.899 Other long term (current) drug therapy; Z79.84 Long term (current) use of oral hypoglycemic drugs
CPT/HCPCS: 36415; 74177; 80048; 80053; 82010; 82947; 83690; 85025; 96361; 96374; 96375; 99284; 99285; J1885; Q9967

== ENCOUNTER → 2024-11-19 11:36 | Outpatient (BNV) | payer OTHER, SELFPAY | PROVIDERS: Emergency Provider Emergency Medicine; Visit Provider Radiology Diagnostic Radiology | DX: R10.9 Unspecified abdominal pain (principal) | CPT/HCPCS: 74177 ==

== ENCOUNTER → 2024-11-30 14:43 | Outpatient (BNVA) | payer OTHER, SELFPAY | PROVIDERS: Visit Provider Physician Assistant Medical | DX: S63.592A Other specified sprain of left wrist, initial encounter (principal); W50.1XXA Accidental kick by another person, initial encounter | CPT/HCPCS: 73110; 73130; 99202 ==